=== PATIENT | male | born 1970 | race Hispanic/Latino ===

== ENCOUNTER 2023-10-18 10:50 | Emergency (ER) | payer OTHER, SELFPAY ==
--- NOTE | ~2023-10-18 | XR_ITS ---
Clinical Indication: Chest pain PA and lateral views of the chest: Comparison: None Findings: The lungs are clear, without evidence of focal consolidation or pleural effusion. Cardiome diastinal silhouette is within normal limits. Bones and soft tissues are unremarkable. Impression: Normal chest. Reviewed, dictated and finalized at location . Impression: Normal chest.
--- NOTE | ~2023-10-18 | CT_ITS ---
EXAMINATION: CTA chest PE abdomen pel DATE: 10/18/2023 14:02 INDICATION: Chest pain, shortness of breath and abdominal pain TECHNIQUE: Computed tomography (CT) pulmonary angiogram of the chest was performed with 100 mL Omnipa que-350 intravenous contrast. Additional 3D reconstructions utilizing coronal maximum intensity proje ction (MIP) were performed. CT of the abdomen and pelvis was performed with intravenous contrast util izing the same contrast bolus following a short delay. Automated exposure control and iterative recon struction technique were employed. The dose-length product was 2327.37 mGy-cm. COMPARISON: None FINDINGS: Chest: No pulmonary embolism. Sensitivity decreased in the subsegmental pulmonary arteries in the lower and to lesser degree mid lung zones due to motion artifact. There is scattered discoid atelectasis in the bilateral lower lungs. No pneumonia, pulmonary edema, pleural effusion or pneumothorax. Heart size i s normal. No pericardial effusion. Thoracic aorta is normal in caliber with no dissection. No patholo gically enlarged thoracic lymphadenopathy. Mild thoracic spondylosis. Abdomen/pelvis: Diffuse hepatic steatosis with nodular surface contour consistent with cirrhosis. Splenomegaly measur ing 16 cm in maximal length which along with recanalization of the umbilical vein is consistent with portal venous hypertension likely secondary cirrhosis. Gallbladder, pancreas, bilateral adrenal gland s and kidneys are normal. Moderate-sized fat-containing umbilical hernia. Bladder is normal. There is mild colonic diverticulosis with a sigmoid predominance. There is no adjacent inflammatory change to suggest diverticulitis. Normal appendix. No bowel obstruction. There is mild stranding in the fat in the upper abdomen predominantly along the anterior and inferior margins of the left hepatic lobe N o free intraperitoneal gas or fluid. No pathologically enlarged abdominal or pelvic lymphadenopathy. Mild lumbar levocurvature with mild spondylosis. IMPRESSION: 1. Discoid atelectasis in the bilateral lower lungs. No pulmonary embolism or other acute cardiopulmo nary disease. 2. Cirrhosis with recanalized umbilical vein and splenomegaly consistent with secondary portal venous hypertension. 3. Moderate-sized fat-containing umbilical hernia. Reviewed, dictated and finalized at location A. IMPRESSION: 1. Discoid atelectasis in the bilateral lower lungs. No pulmonary embolism or o ther acute cardiopulmonary disease. 2. Cirrhosis with recanalized umbilical vein and splenomegaly consistent with s econdary portal venous hypertension. 3. Moderate-sized fat-containing umbilical hernia.
--- NOTE | 2023-10-18 10:52 | ECG_ITS ---
Test Date: 2023-10-18 11:13:44 Measurements Intervals [place] Rate: 103 P: 27 VT: 146 QRS: -40 QRSD: 84 T: 33 QT: 352 QTc: 462 Interpretive Statements SINUS TACHYCARDIA LEFT AXIS DEVIATION POSSIBLE LEFT ATRIAL ENLARGEMENT POOR R WAVE PROGRESSION BORDERLINE ECG No previous ECG available for comparison Electronically Signed On 10-18-2023 11:20:17 CDT by Andreas Crawford D.O.
[2023-10-18 10:53] VITALS: BP 192/116; PULSE 110; RESP 18; TEMP 36.6; O2SAT 98
[2023-10-18 11:25] LABS: Basophils Percent Auto 0.2 % (0.2-1.2); Eosinophils Percent Auto 0.2 % (0-4.4); Hematocrit 48.4 % (42.0-52.0); Hemoglobin 17.3 g/dL (14.0-18.0); Immature Granulocyte Absolute 0.07 K/mm3 (0.00-0.031); Immature Granulocyte Percent A 0.5 % (0-0.5); Lymphocytes Percent Auto 13.3 % (18.3-44.2); Mean Corpuscular HGB Conc 35.7 g/dl (32-36); Mean Corpuscular Hemoglobin 31.4 pg (26-34); Mean Corpuscular Volume 87.8 fl (80-100); Monocytes Absolute Auto 0.8 K/mm3 (0.1-0.6); Monocytes Percent Auto 5.2 % (2.6-8.5); Neutrophils Absolute Auto 12.2 K/mm3 (1.3-6.7); Neutrophils Percent Auto 80.6 % (45.5-73.1); Platelet Count Result 121 k/mm3 (150-375); Red Blood Count 5.51 M/mm3 (4.6-6.20); Red Cell Distribution Width 12.8 % (11.5-14.5); White Blood Count 15.1 K/mm3 (4.5-10.0)
[2023-10-18 11:36] LABS: INR 1.1; Prothrombin Time 15.1 Seconds (11.1-14.7)
[2023-10-18 11:37] LABS: Partial Thromboplastin Time 28.4 Seconds (22.3-36.8)
[2023-10-18 11:43] LABS: Alanine Aminotransferase 96 U/L (6-50); Albumin Level 4.5 g/dL (3.5-5.1); Alkaline Phosphatase 137 U/L (38-126); Anion Gap 12 mmol/L (4-12); Aspartate Amino Transferase 46 U/L (17-59); Bilirubin,Total 1.3 mg/dL (0.2-1.3); Blood Urea Nitrogen 14 mg/dL (9-20); Calcium 8.8 mg/dL (8.4-10.2); Carbon Dioxide 24 mmol/L (22-30); Chloride 100 mmol/L (98-107); Estimated CRCL calculation 170 ml/min; Estimated Glomerular Filt Rate > 60; Glucose 312 mg/dL (65-110); Lipase 21 U/L (23-300); Potassium 3.8 mmol/L (3.4-5.0); Sodium 136 mmol/L (137-145)
[2023-10-18 11:55] LABS: Troponin I < 0.012 ng/mL (0.000-0.034)
[2023-10-18 12:28] VITALS: O2SAT 95
[2023-10-18 12:30] VITALS: BP 180/104; PULSE 97; RESP 20; O2SAT 95
[2023-10-18 12:35] VITALS: PULSE 93
[2023-10-18] MEDS: ASPIRIN 81 MG CHEWABLE TABLET 324 MG PO (12:52)
[2023-10-18] MEDS: LABETALOL HCL INJ 100 MG/20 ML VIAL 20 MG IV PUSH (12:55)
[2023-10-18 13:05] VITALS: BP 155/104; PULSE 86; RESP 20; O2SAT 94
--- NOTE | 2023-10-18 13:12 | ED.CHESTPAIN ---
HPI - Chest Pain General Chief Complaint: Chest Pain Stated Complaint: chest pain Time Seen by Provider: 10/18/23 12:37 History of Present Illness HPI narrative: Patient is a 53-year-old male who presents to the emergency department this evening complaining of chest pain for the past 3 days and has been progressively getting worse. Patient describes the pain as a pressure in the middle of his chest and admits to some shortness of breath. denies any similar symptoms in the past, denies any cardiac history. Patient admits to history of high blood pressure and states that he is supposed to be on lisinopril for his blood pressure but he does not take his medications. admits that he does not follow-up with any primary care physician. While performing a physical exam, patient was noted to be tender on abdominal examination and when asked about this, he does admit to abdominal pain. Denies any nausea or vomiting, any fevers or chills at home, and denies any urinary symptoms including dysuria or hematuria. Related Data Allergies Allergy/AdvReac Type Severity Reaction Status Date / Time No Known Allergies Allergy Verified 10/18/23 12:42 Review of Systems Review of Systems: All systems are reviewed and are negative unless stated otherwise in the HPI. Exam Narrative: General: Alert, awake, afebrile, in no acute distress. HEENT: PERRL, no rhinorrhea, no post nasal drip, oropharynx clear. Cardiovascular: Regular rate and rhythm, no murmurs, rubs or gallops, no peripheral edema. Respiratory: Clear to auscultation bilaterally, no tachypnea, no wheezing, no rhonchi, no rubs, no respiratory distress. Abdomen: Soft, nontender, nondistended, no rebound, no guarding, no peritoneal signs. Musculoskeletal: No joint swelling or deformity, normal muscle tone. Skin: No rashes or petechia, no signs of infection. Neurological: Alert and oriented to person, place, and time. Follows all commands. No focal deficits, speech is clear and fluent. Course Vital Signs Vital signs: Vital Signs Temperature 97.9 F 10/18/23 10:53 Pulse Rate 110 H 10/18/23 10:53 Respiratory Rate 18 10/18/23 10:53 Blood Pressure 192/116 H 10/18/23 10:53 Pulse Oximetry 98 10/18/23 10:53 Oxygen Delivery Room Air 10/18/23 10:53 Temperature 97.9 F 10/18/23 10:53 Pulse Rate 86 10/18/23 13:25 Respiratory Rate 16 10/18/23 13:25 Blood Pressure 155/104 H 10/18/23 13:25 Pulse Oximetry 97 10/18/23 13:25 Oxygen Delivery Room Air 10/18/23 12:28 MDM - Chest Pain MDM Narrative Medical decision making narrative: The patient was evaluated by myself in the emergency department. History is obtained from patient who is an independent historian and physical exam was performed. External medical records were reviewed at this time. IV was established and pertinent tests were ordered. Patient was administered 40 mg of IV Protonix. EKG was obtained which revealed sinus tachycardia at a rate of 103 beats per minute, no evidence of acute ischemia. EKG was independently interpreted by me and is currently pending official cardiology read. Laboratory results obtained revealing a leukocytosis of 15.1, glucose 312, ALT 96, alkaline phos is 137, otherwise unremarkable. Imaging studies obtained included CXR which was independently interpreted by me revealing no acute cardiopulmonary process, which is pending final radiology interpretation. CT angio chest/abdomen/ pelvis was obtained at this time and inability interpreted by me revealing no evidence of PE, aortic dissection, cirrhosis with recanalized umbilical vein and splenomegaly consistent with secondary portal venous hypertension. At this time,/interpretation services were used to go over patient's blood work and CT results and patient was informed that he will need to follow-up with GI and that he will be provided with the PCP to follow up with and that he needs to be taking his blood pressure medicati
[2023-10-18 13:25] VITALS: BP 155/104; PULSE 86; RESP 16; O2SAT 97
[2023-10-18] MEDS: PANTOPRAZOLE SODIUM IV 40 MG VIAL IV PUSH (14:02)
[2023-10-18 14:35] LABS: Troponin I < 0.012 ng/mL (0.000-0.034)
== END 2023-10-18 15:07 | disposition home or self-care (01) ==
PROVIDERS: Emergency Provider Emergency Medicine
DX: R07.9 Chest pain, unspecified (principal); K74.60 Unspecified cirrhosis of liver; I10 Essential (primary) hypertension; Z91.148 Patient's other noncompliance with medication regimen for other reason; R10.9 Unspecified abdominal pain
CPT/HCPCS: 36415; 71046; 71275; 74177; 80053; 83690; 84484; 85025; 85610; 85730; 93005; 96374; 96375; 99284; A9270; J2470; Q9967